=== PATIENT | male | born 1965 | race Hispanic/Latino ===

== ENCOUNTER 2024-02-15 20:06 | Emergency (ER) | payer BC ==
[~2024-02-15] VITALS: Ht 170.2 cm; Wt 104.3 kg
[~2024-02-15 20:06] MED LIST: AMOX1TAB16 PO
--- NOTE | 2024-02-15 20:39 | ERN ---
ED Note History of Present Illness Stated Complaint: FINGER INJURY Chief Complaint: Abscess Time Seen by MD: 20:08 Time Seen by Midlevel: 20:08 Dictation: Patient is a 58-year-old male with a history of cholecystectomy, appendectomy who presents to the emergency department with complaints of left 4th finger swelling after he accidentally jammed it with a dust mop onset yesterday. Patient denies any fevers. Allergies: Coded Allergies: No Known Drug Allergies (Unverified Allergy, Unknown, 06/29/23) Home Meds Active Scripts Amoxicillin/Potassium Clav (Amox Tr-K Clv 875-125 mg Tab) 875 Mg-125 Mg Tablet, 1 EACH PO BID, #14 TAB Prov:BHUMI SHEPARD IV, MD 06/30/23 Past Medical History Past Medical History: No Pertinent History, Unknown Surgical History: Appendectomy, Other Surgical History Other: BILATERAL ARMS RN Note Reviewed/Agreed w/PFSH: Yes Review of System Dictation Constitutional: Negative for fever,chills, and weight loss Eyes: Negative for injury, pain,redness, and discharge ENT: Negative for injury,pain or swelling Cardiovascular: Negative for chest pain, palpitations, and edema Respiratory: Negative for shortness of breath, cough, and wheezing, Abdomen/GI: Negative for abdominal pain, nausea, vomiting, diarrhea, and constipation Back: Negative for injury and pain : Negative for injury, bleeding and discharge MS/Extremity: Positive for left 4th digit injury Skin: Negative for rash, and discoloration Neuro: Negative for headache, weakness, numbness, tingling, and seizure Psych: Negative for suicide ideation, homicidal ideation, and hallucinations Initial Vital Sign VS Vital Signs Date Time Temp Pulse Resp B/P (MAP) Pulse Ox O2 Delivery O2 Flow Rate FiO2 02/15/24 20:07 99.3 95 18 173/87 97 Room Air 02/15/24 20:34 0 21 Physical Exam Dictation Vital Signs reviewed General Appearance: Alert, oriented x 3, no acute distress, well developed, nourished. Head and Face: non-traumatic. Eyes: PERRL, pink conjunctivas, eyelid no trauma, anterior chamber with arcus senilis. Ears: Pinnas intact and no signs of trauma or erythema ear canals clear and no discharge TM no erythema Nose: No discharge, no bleeding. Oropharynx: Mouth normal, tongue pink. pharynx clear,no erythema, tonsils no exudates, no abscesses noted, mucous membrane moist Neck: Supple, non-tender, no thyromegaly, no masses, no JVD, no bruits Breast:Deferred Chest:No tenderness, no crepitus, no paradoxical movement, no retractions Lungs:Clear, well-ventilated, symmetric, no rales, no wheezing, no rhonchi, no stridor, good breath sounds bilaterally Heart: Regular rate, regular rhythm, no murmur, no gallops Vascular: no peripheral edema, Abdomen: Soft, positive bowel sounds, nondistended, no guarding, nontender, no rebound, no masses no hepatomegaly, no splenomegaly, no Mendez's sign, no hernias. Rectal: Deferred Genital: Deferred Neurological: Normal speech, motor function intact, sensory function intact Musculoskeletal: Neck nontender, full range of motion, back nontender, full range of motion, Extremities: Left 4th digit with swelling, small abscess noted to tip of finger, no open wounds, CMS intact Skin: Color pink, dry, no turgor, no rash, no lacerations, no abrasions, no contusions. Lymphatic: Deferred Results (Laboratory/Radiology) Labs Reviewed?: Yes ED Course ED Course Orders Procedure Category Date Status Time Finger(S) 2+Vws Lt RAD 02/15/24 Taken 20:07 Ibuprofen 800 Mg Tab PHA 02/15/24 Complete (Motrin) 21:00 Ceftriaxone 1g Vial PHA 02/15/24 In Process (Rocephine 1g Inj) 22:00 Aerobic Culture YULIA 02/15/24 Logged 21:55 Anaerobic Culture YULIA 02/15/24 Logged 21:55 Current Medications Medications (Trade) Dose Ordered Sig/Evy Route PRN Reason Start Time Stop Time Status Last Admin Dose Admin Ceftriaxone Sodium (ROCEphine 1G INJ) 1 gm ONCE ONCE IM 02/15/24 22:00 02/15/24 22:01 02/15/24 21:59 Ibuprofen (moTRIN) 800 mg ONCE ONCE PO 02/15/24 21:00 02/15/24 21:01 DC 02/15/24 20:55 Vital Signs Date Time Temp Pulse Resp B/P (MAP) Pulse Ox O2 Delivery O2 Flow Rate FiO2 02/15/24 20:34 99.3 97 20 175/82 98 Room Air* 0 21 02/15/24 20:07 99.3 95 18 173/87 97 Room Air Medical Decision Making MDM Patient is a 58-year-old male with a history of cholecystectomy, appendectomy who presents to the emergency department with complaints of left 4th finger swelling after he accidentally jammed it with a dust mop onset yesterday. Patient denies any fevers. patient up-to-date with tetanus Differential diagnosis: Cellulitis, abscess, phalangeal fracture, phalangeal contusion X-ray showed no obvious fractures. Abscess was neck and drained. Cultures collected. Patient was giving a dose of Rocephin in ER and will be discharged with the antibiotics. Patient instructed to follow up with PCP. Need for hospitalization: Patient does not meet criteria for hospitalization. There are no social concerns with this patient. Procedure Blade Size: 11 I & D Procedure: no betadine prep Progress Verbal consent for the procedure was obtained. A timeout protocol was performed prior to initiating the procedure. The area was prepared and draped in the usual, sterile manner. A puncture incision along the lateral aspect of 4th digit the purulent material expressed. Bleeding was minimal. The patient tolerated the procedure well without complications. Standard post-procedure care is explained and return precautions are given. DX & DISP Disposition: Discharge Departure Impression: Primary Impression: Abscess of ring finger Additional Impression: Finger contusion Condition: Stable Scripts Sulfamethoxazole/Trimethoprim (Bactrim Ds Tablet) 800 Mg-160 Mg Tablet 1 TAB PO BID for 7 Days, #14 TAB 0 Refills Prov: DELIA VEGA [facility] 02/15/24 Additional Instructions: Please take antibiotics as prescribed. Continue to follow up with your primary doctor. If symptoms worsen, severe fever weakness develop please return to ER. FOLLOW-UP WITH PRIMARY CARE PROVIDER IN 1 TO 2 DAYS. TAKE MEDICATIONS DIRECTED HERE IN THE EMERGENCY ROOM. OKAY TO CONTINUE HOME MEDICATIONS UNLESS OTHERWISE DISCUSSED DURING YOUR VISIT IN THE EMERGENCY ROOM TODAY. RETURN TO YOUR NEAREST EMERGENCY ROOM IF SYMPTOMS WORSEN OR IF THERE IS NO IMPROVEMENT. CALL 911 IF YOU NEED IMMEDIATE ASSISTANCE. TAKE TYLENOL OR MOTRIN [id number] NEEDED AND IF NO CONTRAINDICATIONS ARE PRESENT. INCREASE ORAL HYDRATION. A WOUND CULTURE OR URINE CULTURE WAS ORDERED HERE IN THE EMERGENCY ROOM DEPARTMENT PLEASE FOLLOW-UP WITH PRIMARY CARE PROVIDER AND ADVISE THEM TO GET REPEAT PORTS FROM OUR FACILITY. IF YOU HAD ANY KAMINI WRAP/SPLINTS THAT WERE APPLIED HERE, PLEASE DO NOT REMOVE THEM UNTIL YOU SEE YOUR PRIMARY CARE OR SPECIALTY. Referrals: Wei CERON MD (PCP) Time of Disposition: 22:03 I have reviewed the case, and I agree with, Diagnosis and Plan DELIA VEGA [facility] Feb 15, 2024 20:39
[2024-02-15] MEDS: ibuPROFEN 800 MG TAB PO ONE (20:55)
[2024-02-15] MEDS: cefTRIAXone 1G VIAL IM ONE (21:59)
[2024-02-15] MEDS ORDERED: SULF1TAB42 PO (22:05)
--- NOTE | 2024-02-15 22:25 | NUR ---
FINGER SPLINT APPLIED ORDERED
[2024-02-15 22:32] VITALS: BP 156/79; PULSE 88; RESP 20; TEMP 98.7; O2SAT 98
--- NOTE | 2024-02-16 00:17 | HMCIMG ---
FINGER(S) 2+VWS LT HISTORY: Injury COMPARISON: None TECHNIQUE: 3 images of left third, fourth and fifth fingers were obtained. FINDINGS: There is no acute displaced fracture or dislocation. There is soft tissue swelling. Interphalangeal joint space narrowing is seen. Degenerative changes are seen. IMPRESSION: 1. Findings as described above.
== END 2024-02-15 22:34 | disposition home or self-care (01) ==
LOC: EDH 20:06
DX: S60.042A Contusion of left ring finger without damage to nail, initial encounter (principal); L02.512 Cutaneous abscess of left hand; Z79.899 Other long term (current) drug therapy; X58.XXXA Exposure to other specified factors, initial encounter; Y93.89 Activity, other specified; Y92.89 Other specified places as the place of occurrence of the external cause; Y99.8 Other external cause status
CPT/HCPCS: 99284; 26010; 87070; 87076; 73140; 96372; J0696

== ENCOUNTER 2024-04-17 00:14 | Emergency (ER) | payer BC ==
[~2024-04-17] VITALS: Ht 170.2 cm; Wt 102.5 kg
[~2024-04-17 00:14] MED LIST changes: +SULF1TAB42 PO
[2024-04-17 00:15] VITALS: BP 177/91; PULSE 89; RESP 20; TEMP 98.6
[2024-04-17] MEDS: methoCARBamol 500 MG TABLET PO STA (01:15)
[2024-04-17 01:29] LABS: BASOPHILS # (AUTO) 0.03 K/uL (0.00-0.20); BASOPHILS % (AUTO) 0.3 % (0.0-5.0); EOSINOPHILS # (AUTO) 0.13 K/uL (0.00-0.70); EOSINOPHILS % (AUTO) 1.5 % (0.0-8.0); HEMATOCRIT 40.9 % (42-54); IMMATURE GRANULOCYTE ABSOLUTE 0.03 K/uL (0-1); LYMPHOCYTES # (AUTO) 1.7 K/uL (1.0-4.8); LYMPHOCYTES % (AUTO) 19.5 % (21.0-51.0); MEAN CORPUSCULAR HEMOGLOBIN 34.5 pg (27.0-33.0); MEAN CORPUSCULAR HGB CONC 34.5 g/dL (32.0-36.0); MONOCYTES # (AUTO) 0.7 K/uL (0.1-1.0); MONOCYTES % (AUTO) 7.6 % (3.0-13.0); NEUTROPHILS # (AUTO) 6.3 K/uL (1.8-7.7); NEUTROPHILS % (AUTO) 70.8 % (40.0-77.0); PLATELET COUNT (AUTO) 231 K/uL (130-400); RED BLOOD CELL COUNT(AUTO) 4.09 MIL/uL (4.50-6.20); RED CELL DISTRIBUTION WIDTH 13.7 % (11.0-15.5); WHITE BLOOD COUNT (AUTO) 8.9 K/uL (4.8-10.8)
[2024-04-17 01:37] LABS: POTASSIUM 3.4 mmol/L (3.5-5.1)
[2024-04-17] MEDS ORDERED: METH100054 PO (02:43)
--- NOTE | 2024-04-17 02:44 | ERN ---
ED Note History of Present Illness Stated Complaint: C/O LOWER BACK PAIN Chief Complaint: Back Pain-No Injury Time Seen by MD: 00:20 Time Seen by Midlevel: 00:26 Dictation: 59-year-old male coming in complaining of mid back pain radiating into her his lower back. Patient states when he was younger he had an accident where he fell on some bleachers and thinks it is flaring up. Patient denies having any short of breath, chest pain, cough, fever, congestion. Allergies: Coded Allergies: No Known Drug Allergies (Unverified Allergy, Unknown, 06/29/23) Home Meds Active Scripts Sulfamethoxazole/Trimethoprim (Bactrim Ds Tablet) 800 Mg-160 Mg Tablet, 1 TAB PO BID for 7 Days, #14 TAB 0 Refills Prov:DELIA VEGA REHABILITATION THERAPY AIDE 02/15/24 Amoxicillin/Potassium Clav (Amox Tr-K Clv 875-125 mg Tab) 875 Mg-125 Mg Tablet, 1 EACH PO BID, #14 TAB Prov:BHUMI SHEPARD IV, MD 06/30/23 Past Medical History Past Medical History: No Pertinent History Surgical History: None Surgical History Other: BILATERAL ARMS Review of System Dictation Constitutional: Negative for fever,chills, and weight loss Eyes: Negative for injury, pain,redness, and discharge ENT: Negative for injury,pain or swelling Cardiovascular: Negative for chest pain, palpitations, and edema Respiratory: Negative for shortness of breath, cough, and wheezing, Abdomen/GI: Negative for abdominal pain, nausea, vomiting, diarrhea, and constipation Back: Negative for injury and pain : Negative for injury, bleeding and discharge MS/Extremity: Complaining of lower back pain Skin: Negative for rash, and discoloration Neuro: Negative for headache, weakness, numbness, tingling, and seizure Psych: Negative for suicide ideation, homicidal ideation, and hallucinations Review of Systems: was completed Initial Vital Sign VS Vital Signs Date Time Temp Pulse Resp B/P (MAP) Pulse Ox O2 Delivery O2 Flow Rate FiO2 04/17/24 00:15 98.6 89 20 177/91 97 Room Air Physical Exam Dictation General: awake, alert, NAD Head/Face: Normocephalic, atraumatic Eyes: PERRL, EOMI, vision at baseline ENT: oral cavity clear, TMs clear, no signs of infection Neck: Trachea midline, supple, no nuchal rigidity Cardiovascular: RRR, normal S1/S2, No MRGs, no JVD Respiratory: CTAB, no respiratory distress, No rales or wheezes Abdomen: Soft, non-tender, non-distended, normal bowel sounds, no guarding or rebound. Skin: Warm, dry, normal turgor, no rash MS/Extremity: Pulses equal, no cyanosis, neurovascular intact, FROM Neuro: COAx4, GCS 15, strength 5/5, CN 2-12 intact, normal cerebellar exam, normal gait, Psych: Normal behavior, mood, and affect normal Results (Laboratory/Radiology) Laboratory/Radiology Laboratory Tests Test 04/17/24 01:20 White Blood Count 8.9 K/uL (4.8-10.8) Red Blood Count 4.09 MIL/uL (4.50-6.20) L Hemoglobin 14.1 g/dL (14.0-18.0) Hematocrit 40.9 % (42-54) L Mean Corpuscular Volume 100.0 fL (79-99) H Mean Corpuscular Hemoglobin 34.5 pg (27.0-33.0) H Mean Corpuscular Hemoglobin Concent 34.5 g/dL (32.0-36.0) Red Cell Distribution Width 13.7 % (11.0-15.5) Platelet Count 231 K/uL (130-400) Mean Platelet Volume 9.8 fL (7.5-10.5) Immature Granulocyte % (Auto) 0.3 % (0-1) Neutrophils (%) (Auto) 70.8 % (40.0-77.0) Lymphocytes (%) (Auto) 19.5 % (21.0-51.0) L Monocytes (%) (Auto) 7.6 % (3.0-13.0) Eosinophils (%) (Auto) 1.5 % (0.0-8.0) Basophils (%) (Auto) 0.3 % (0.0-5.0) Neutrophils # (Auto) 6.3 K/uL (1.8-7.7) Lymphocytes # (Auto) 1.7 K/uL (1.0-4.8) Monocytes # (Auto) 0.7 K/uL (0.1-1.0) Eosinophils # (Auto) 0.13 K/uL (0.00-0.70) Basophils # (Auto) 0.03 K/uL (0.00-0.20) Absolute Immature Granulocyte (auto 0.03 K/uL (0-1) Nucleated Red Blood Cells 0.0 % (0.0-0.19) Sodium Level 139 mmol/L (136-145) Potassium Level 3.4 mmol/L (3.5-5.1) L Chloride Level 101 mmol/L (101-111) Carbon Dioxide Level 30 mmol/L (21-32) Blood Urea Nitrogen 14 mg/dL (7-18) Creatinine 1.0 mg/dL (0.5-1.3) Glomerular Filtration Rate Calc 87 mL/min (>90) Random Glucose 166 mg/dL (70-105) H Total Calcium 9.4 mg/dL (8.5-10.1) Troponin I High Sensitivity 10 ng/L (4-75) Labs Reviewed?: Yes EKG Comment: EKGs done at 0122, sinus rhythm, left axis deviation, rate of 75. No STEMI interpreted by ER MD. ED Course ED Course Orders Procedure Category Date Status Time Cbc With Differential LAB 04/17/24 Complete 01:05 Basic Metabolic Panel LAB 04/17/24 Complete 01:05 Troponin I High LAB 04/17/24 Complete Sensitivity 01:05 12 Lead Ekg Tracing- EKG 04/17/24 Logged Technical 01:05 Chest 1vw RAD 04/17/24 Taken 01:05 Methocarbamol PHA 04/17/24 Complete (Methocarbamol) 01:05 Current Medications Medications (Trade) Dose Ordered Sig/Evy Route PRN Reason Start Time Stop Time Status Last Admin Dose Admin Methocarbamol (methoCARBamol) 1,000 mg ONCE STAT PO 04/17/24 01:05 04/17/24 01:07 DC 04/17/24 01:15 Vital Signs Date Time Temp Pulse Resp B/P (MAP) Pulse Ox O2 Delivery O2 Flow Rate FiO2 04/17/24 00:15 98.6 89 20 177/91 97 Room Air Medical Decision Making MDM MDM: CBC shows no leukocytosis, no anemia, no thrombocytopenia. Chemistry shows mild hypokalemia at 3.4. No kidney injury. Mild hyperglycemia at 166. Troponin negative. EKGs shows sinus rhythm, no ST elevations or dysrhythmias. Chest x-ray shows some interstitial markings. However patient is asymptomatic. Discussed findings with the patient. Patient states after the Robaxin he feels better. Educated that I will discharge him with a prescription for Robaxin to take as needed for back pain. Educated to follow up with PCP in 1-2 days and to return to the ER symptoms worsen. Patient verbalized understanding, answered all questions. Differential diagnosis: ACS, pneumonia, back pain Rationale: Tests considered and ordered secondary to shared decision making include: Previous outside records reviewed: Old ER visits. Risk of complication and/or morbidity or mortality of patient management: None Medications-Per medication reconciliation Need for hospitalization: Patient does not meet criteria for hospitalization. Need for emergency major/minor surgery: No There are no social concerns with this patient. Prescription drug management Prescriptions will include symptomatic care Patient's prior external medical records from other ER visits were reviewed by me as indicated. Prior testing and results from previous visits were reviewed. Prior tests were taken into account with medical decision making and resource utilization, independent historian/historians were used to obtain complete medical history. I independently interpreted the test that were performed, results were reviewed by me and considered findings on radiology if ordered. Medical management and examination interpretation discussions were had by me with other qualified healthcare professionals as indicated for the patient's care. DX & DISP Disposition: Discharge Departure Impression: Primary Impression: Back pain Condition: Stable Scripts Methocarbamol (Methocarbamol) 1,000 Mg Tablet 1000 MG PO QID PRN for PAIN for 3 Days, #12 TAB Prov: ADAM SANTIAGO CHEMICAL RADIATION TECHNICIAN 04/17/24 Additional Instructions: Taking muscle relaxer as needed for muscle pain. You can add Tylenol or Motrin to take during the day in the muscle relaxer when your ready to go to bed. Do not drive while taking the muscle relaxer. Follow up with your PCP in 1-2 days and return to the ER as needed. Referrals: Wei CERON MD (PCP) Time of Disposition: 02:43 I have reviewed the case, and I agree with, Diagnosis and Plan ADAM SANTIAGO NP Apr 17, 2024 02:44
--- NOTE | 2024-04-17 07:03 | EKG ---
[facility] Test Date: 2024-04-17 Test Time: 01:22:13 Pat Name: ILANA DE LA GARZA Department: ED Room: Gender: M Semiconductor Technician: [id number] : 1965 Requested By: ADAM SANTIAGO Order Number: [id number] Reading MD: Neli Porras Measurements Intervals Normanna Rate: 75 P: 44 PA: 140 QRS: -34 QRSD: 107 T: 36 QT: 390 QTc: 435 Interpretive Statements Sinus rhythm Left axis deviation Compared to ECG 06/29/2023 07:15:46 Left-axis deviation now present Myocardial infarct finding no longer present Electronically Signed On 04-17-2024 08:18:[address] ENG[address]ING TECHNICIAN by Neli Porras Please click the below link to view image of tracing.
--- NOTE | 2024-04-17 09:08 | HMCIMG ---
CHEST 1VW HISTORY: Back pain COMPARISON: None FINDINGS: A frontal projection of the chest was obtained. Mild bilateral pulmonary infiltrates are seen may be related to mild pulmonary vascular congestion with possible superimposed pneumonitis. The heart is borderline enlarged. Degenerative changes are seen. No evidence of aortic calcification is seen. IMPRESSION: 1. Mild bilateral pulmonary infiltrates are seen may be related to mild pulmonary vascular congestion with possible superimposed pneumonitis.
== END 2024-04-17 02:48 | disposition home or self-care (01) ==
LOC: EDH 00:14
DX: M54.6 Pain in thoracic spine (principal); Z79.899 Other long term (current) drug therapy; W18.39XA Other fall on same level, initial encounter; Y93.89 Activity, other specified; Y92.89 Other specified places as the place of occurrence of the external cause; Y99.8 Other external cause status
CPT/HCPCS: 36415; 71045; 80048; 84484; 85025; 93005; 99284

== ENCOUNTER 2024-07-01 04:46 | Emergency (ER) | payer BC ==
[~2024-07-01] VITALS: Ht 170.2 cm; Wt 109.8 kg
[~2024-07-01 04:46] MED LIST changes: +METH100054 PO
--- NOTE | 2024-07-01 06:18 | ERN ---
General Chief Complaint: Multiple Complaints Stated Complaint: C/O PAIN TO KNEES,BACK,NOSE PROBLEM Time Seen by MD: 05:25 History of Present Illness Initial Comments Patient is a 59-year-old male here with three chief complaints: One knee pain that keeps him from walking. Two lumps in his back that seemed to be getting bigger. 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 Timing/Duration: 1 week, getting worse Allergies: Coded Allergies: No Known Drug Allergies (Unverified Allergy, Unknown, 06/29/23) Home Meds Active Scripts Methocarbamol (Methocarbamol) 1,000 Mg Tablet, 1000 MG PO QID PRN for PAIN for 3 Days, #12 TAB Prov:ADAM SANTIAGO COMMISSARY OFFICER 04/17/24 Sulfamethoxazole/Trimethoprim (Bactrim Ds Tablet) 800 Mg-160 Mg Tablet, 1 TAB PO BID for 7 Days, #14 TAB 0 Refills Prov:DELIA VEGA INFLATED BALL MOLDER 02/15/24 Amoxicillin/Potassium Clav (Amox Tr-K Clv 875-125 mg Tab) 875 Mg-125 Mg Tablet, 1 EACH PO BID, #14 TAB Prov:BHUMI SHEPARD IV, MD 06/30/23 Past Medical History Past Medical History: No Pertinent History Past Surgical History: None Surgical History Other: BILATERAL ARMS ROS Dictation Review of symptoms is negative. Patient has no chest pain, difficulties breath ing, GI problems, headaches visual disturbances. Review of Systems: was completed Physical Exam General Appearance: (+) mild distress Orientation: (+) alert, (+) oriented x 3 Eye: bilateral eye normal inspection, bilateral eye PERRL, bilateral eye EOMI Ear, Nose, Throat: (+) hearing grossly normal, (+) normal ENT inspection Ear, Nose, Throat Comment Patient indeed has a perforated septum that is filled with mucous plug now. 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 Extremities: (+) normal range of motion Extremities Comment Just passively moving patient's bilateral knees causes pain Results Laboratory and Microbiology Lab and Micro Result Laboratory Tests Test 07/01/24 05:40 HIV (1&2) Antibody Non-Reactive (Negative) HIV P24 Antigen, Qualitative Non-Reactive (Negative) MDM Tackling all three patient's problems. Patient's bilateral knees are tender and swollen I will get x-rays of them to characterize his arthritic changes. Patient's neck and back have a benign lipomas, they could be cystic masses. Patient does have a perforated septum. I am not sure why that would prevent him from being a plasma donor unless people suspect that the perforation is due to cocaine inhalation. I have ordered a urinary tox screen to rule this out. In addition ordered HIV and hepatitis-B profiles. Patient needs to get a primary care physician in order to get all of these issues resolved. DR CYR I took over care at 0700 pending x-rays and disposition CC: Multiple complaints. Including bilateral knee pain, lumps on the back, "hole in the septum of his nose" Limitations by social determinants of health: None Comorbidities: Denies Differential diagnosis: septum abnormality, arthritis, rash, other Vital signs: Stable remained stable in the ER Bilateral knee x-ray (independently interpreted by me ): No acute abnormality no fracture no significant arthritis HIV swabs negative Patient does not appear to have any medical emergencies. You can follow up as an outpatient regarding the septum. no airway compromise respiratory distress. Lumps on his back appear to be lipomas. He can follow up with the general surgeon regarding this. Knee x-ray is unremarkable cold, appears to be soft tissue in nature. He was neurovascularly intact and ambulatory. We will discharge with a NSAIDs. Plan: DC with a NSAIDs, recommend PCP follow up for outpatient referrals. ED Course Orders Procedure Category Date Status Time Knee 2vw Bilateral RAD 07/01/24 Taken 05:26 Hiv 1-2 W/Reflex To LAB 07/01/24 Complete Confirm 05:27 Hepatitis B Surface LAB 07/01/24 In Process Antigen 05:27 Drug Screen Urine LAB 07/01/24 Logged 05:42 Vital Signs Date Time Temp Pulse Resp B/P (MAP) Pulse Ox O2 Delivery O2 Flow Rate FiO2 07/01/24 05:42 90 18 144/81 96 Room Air* 0 21 07/01/24 04:51 97.2 83 20 154/59 95 Room Air DX & DISP Disposition: Discharge Departure Impression: Primary Impression: Lipoma of back Additional Impressions: Perforated nasal septum, Bilateral knee pain Condition: Stable Scripts Meloxicam (Meloxicam) 15 Mg Tablet 15 MG PO DAILY PRN for PAIN for 10 Days, #10 TAB Prov: KE CYR DO 07/01/24 Additional Instructions: There are no emergencies here today. Regarding your perforated septum, I recommend that follow up with an ENT (ears, nose, throat) specialist. Go to your primary doctor for a referral. Regarding the lipomas on your back, these are generally not dangerous. I recommend that you follow up with the general surgeon for this. Go to your primary doctor for referral. Regarding your knee pain, the x-rays are unremarkable. There are no significant bony abnormalities. You may be suffering from arthritis or overuse. I have prescribed meloxicam, which is an anti-inflammatory pain medicine. You can take this once per day for pain. You can also apply ice to your knees frequently to reduce swelling and pain. Please follow up with your primary doctor regarding your multiple complaints. Referrals: Wei CERON MD (PCP) SOPHIE FOFANA MD Jul 01, 2024 06:18 KE CYR DO Jul 01, 2024 07:36
[2024-07-01 06:22] LABS: HIV 1&2 ANTIBODY Non-Reactive (Negative); HIV-1 p24 Antigen Non-Reactive (Negative)
[2024-07-01] MEDS ORDERED: MELO-108 PO (07:34)
[2024-07-01 07:42] VITALS: BP 131/96; PULSE 75; RESP 18; TEMP 98.1; O2SAT 99
[2024-07-01] MEDS: ketOROlac 15MG/ML VIAL (15MG/ML) IM ONE (07:59)
--- NOTE | 2024-07-01 08:06 | NUR ---
PT REFUSED TORADOL MEDICATION, STATES IT DOESNT WORK FOR HIM, NOTIFIED DR. CYR.
--- NOTE | 2024-07-01 08:45 | HMCIMG ---
KNEE 2VW BILATERAL HISTORY: The COMPARISON: None TECHNIQUE: 3 images of bilateral knees were obtained. FINDINGS: There is no acute displaced fracture or dislocation. Minimal degenerative changes are seen. IMPRESSION: 1. Findings as described above.
== END 2024-07-01 08:07 | disposition home or self-care (01) ==
LOC: EDH 04:46
DX: D17.1 Benign lipomatous neoplasm of skin and subcutaneous tissue of trunk (principal); J34.89 Other specified disorders of nose and nasal sinuses; M25.562 Pain in left knee; M25.561 Pain in right knee
CPT/HCPCS: 36415; 73565; 86701; 87340; 87390; 99283; J1885; 73560